=== PATIENT | female | born 1985 | race Caucasian/White ===

== ENCOUNTER 2017-10-05 22:33 | Observation (INO) ==
[2017-10-06] MEDS ORDERED: Naloxone 0.4 MG/ML INJ IVP PRN (01:36)
[2017-10-06] MEDS ORDERED: *HR* Promethazine 25 MG/ML VIAL IVP PRN (01:36)
[2017-10-06] MEDS ORDERED: Acetaminophen 325 MG TABLET PO PRN (01:36)
[2017-10-06] MEDS ORDERED: *HR* Dextrose 50 % in Water (Syg) 50 ML SYRINGE IVP PRN (01:44)
[2017-10-06] MEDS ORDERED: Dextrose Gel 15 GM/37.5 ML TUBE PO PRN ×2 (01:44)
[2017-10-06] MEDS ORDERED: D5% in Water 1,000 ML IVC PRN (01:44)
--- NOTE | 2017-10-06 03:01 | Internal Med History&Physical ---
Date of Encounter: 10/06/17 Time of Encounter: 01:30 Assessment and Plan (1) Abdominal pain Current visit: Yes Status: Acute 1. I suspect gastroparesis based upon history and exam. 2. Will order gastric emptying scan and consult GI for assistance in work-up and management. 3. Hydrate with IVF. 4. Pain control and nausea control as needed. Qualifiers: Abdominal location: generalized Qualified Code(s): R10.84 - Generalized abdominal pain (2) Vomiting and diarrhea Current visit: Yes Status: Chronic 1. Suspect due to gastroparesis. 2. Patient had been on antibiotics until recently (Macrodantin for UTI). 2. Will check stool for Clostridium Difficile. (3) Insulin dependent diabetes mellitus Current visit: Yes Status: Chronic 1. Will place on SSI. 2. Add basal insulin once glucose and labs rechecked this morning. 3. Adjust dosing per glucose readings. (4) Atrial fibrillation Current visit: Yes Status: Chronic 1. Patient reports a history of atrial fibrillation. 2. On exam, I do not appreciate an irregular rhythm. 3. Will order EKG and place on telemetry. Qualifiers: Atrial fibrillation type: paroxysmal Qualified Code(s): I48.0 - Paroxysmal atrial fibrillation (5) DVT prophylaxis Current visit: Yes Status: Acute 1. Heparin SQ. Internal Medicine - H&P: HPI Chief complaint: abdominal pain, vomiting, diarrhea Admitted From: Hospital to Hospital Transfer Plans for Post Hospital Care: Home History of present illness: Ms. Kemp is a 32 year old female who has had abdominal pain for 1 month associated with protracted nausea, vomiting, and occasional diarrhea. She was hospitalized at [facility] in [place] and [facility] in [place] for suspected viral gastroenteritis and dehydration. Despite IV fluid hydration and symptomatic care, patient has continued to lose weight unintentionally -- roughly 20 pounds last month. She denies any fevers, chills, hematochezia, or melena. She is diabetic and has been on insulin for roughly 25 years. She has never been diagnosed with gastroparesis before and has never had gastric empty scan. At [facility], she was told she has gastroparesis but she did not undergo any diagnostic study. Tonight, she presented to the ER at [facility]. Workup was negative, but she was quite symptomatic and dehydrated. [facility] had no beds available and neither did the surrounding hospitals. Patient was transferred here to our hospital for ongoing care and workup. Past Med Surg Social Fam HX - Past Medical History Attestation: Yes The following information was validated with the patient. Source: patient, other (transfer records from [facility]) Medical history: arthritis, atrial fibrillation, diabetes, fibromyalgia, GERD, hyperlipidemia, kidney stones, migraine, RA, seizures, valvular heart disease Psychiatric history: anxiety, depression, panic disorder - Past Surgical History Surgical History: , cholecystectomy - Social History Smoking Status: Never smoker Smokeless Tobacco Status: No Alcohol use: none Drug use: none Current living situation: Home, With Family Activity Level: Independent ambulation Recent Out of Country Travel Within the Last 8 Weeks: No - Family History Mother Living Status: Still Living Father Living Status: Age at : 56 Cause of : ruptured intestine Internal Medicine - H&P: Meds 3 Allergy/AdvReac Type Severity Reaction Status Date / Time Iodinated Contrast- Oral and Allergy Severe Anaphylaxis Verified 10/06/17 02:49 IV Dye metoclopramide [From Reglan] Allergy Severe Depression Verified 10/06/17 02:49 morphine Allergy Severe Hallucinati Verified 10/06/17 02:49 ng naproxen Allergy Severe Chest Pain Verified 10/06/17 02:49 nitroglycerin Allergy Severe Anaphylaxis Verified 10/06/17 02:49 acetaminophen Allergy Intermediate Vomiting Verified 10/06/17 02:49 [From Darvocet-N 100] adhesive tape Allergy Intermediate Rash Verified 10/06/17 02:49 Cefaclor [From Ceclor] Allergy Intermediate Hives Verified 10/06/17 02:49 cephalexin [From Keflex] Allergy Intermediate Hives Verified 10/06/17 02:49 clarithromycin [From Biaxin] Allergy Intermediate Hives Verified 10/06/17 02:49 codeine Allergy Intermediate Rash Verified 10/06/17 02:49 [From Tylenol-Codeine #3] latex Allergy Intermediate Blister Verified 10/06/17 02:49 levofloxacin [From Levaquin] Allergy Intermediate Hives Verified 10/06/17 02:49 meloxicam [From Mobic] Allergy Intermediate Chest Pain Verified 10/06/17 02:49 Oxaprozin [From Daypro] Allergy Intermediate Chest Pain Verified 10/06/17 02:49 propoxyphene Allergy Intermediate Vomiting Verified 10/06/17 02:49 [From Darvocet-N 100] spironolactone Allergy Intermediate Chest Pain Verified 10/06/17 02:49 [From Aldactone] ciprofloxacin [From Cipro] Allergy Unknown Diarrhea Verified 10/06/17 02:49 - Constitutional Constitutional: fatigue, weakness, weight loss, no chills, no fever(s), no night sweats - EENT Eyes: no blurry vision, no change in vision Ears: no ear pain, no tinnitus Nose, mouth and throat: no nasal congestion, no sinus pressure, no sore throat - Cardiovascular Cardiovascular ROS IM: no chest pain, no dyspnea, no dyspnea on exertion - Respiratory Respiratory: no cough, no chest congestion, no excessive phlegm production, no change in phlegm color - Gastrointestinal Gastrointestinal: abdominal pain, diarrhea, nausea, vomiting, no hematemesis, no hematochezia, no melena - Genitourinary Genitourinary: no dysuria, no flank pain, no hematuria Menstruation: amenorrhea (has IUD) - Musculoskeletal Musculoskeletal ROS IM: muscle cramps, muscle weakness, no arthralgias, no back pain - Integumentary Integumentary IM: no rash, no jaundice - Neurological Neurological ROS: no dizziness, no focal weakness, no frequent falls - Psychiatric Psychiatric: anxiety, no depression - Endocrine Endocrine IM: no polydipsia, no polyuria - Hematologic/Lymphatic Hematologic/Lymphatic: no easy bruising, no lymphadenopathy - Allergic/Immunologic Allergic/Immunologic: GI upset with certain foods, no wheezing - Constitutional Vitals: Temp Pulse Resp BP Pulse Ox 97.9 F 94 16 120/85 97 10/06/17 01:02 10/06/17 01:02 10/06/17 01:02 10/06/17 01:02 10/06/17 01:02 General appearance: Present: cooperative, mild distress, A&O X 3, pleasant, answers questions appropriately - Head Head exam: Present: normal inspection - Eye Eye exam: Present: EOMI, PERRL. Absent: scleral icterus Pupils: Present: normal accommodation - ENT ENT exam: Present: mucous membranes dry, normal exam - Neck Neck exam general surgery: Present: full ROM, supple. Absent: tenderness, nuchal rigidity - Respiratory Respiratory exam: Present: CTAB. Absent: chest wall tenderness, rales, respiratory distress, rhonchi, wheezes - Cardiovascular Cardiovascular exam: Present: RRR, +S1, +S2. Absent: diastolic murmur, systolic murmur Additional comments: I do not appreciate an irregularly irregular rhythm on auscultation - GI/Abdominal GI/Abdominal exam: Present: hypoactive bowel sounds, soft, tenderness. Absent: guarding, hepatomegaly, mass, rebound, splenomegaly - Extremities Exam Extremities exam: Present: full ROM, radial pulses palpable and symmetrical. Absent: calf tenderness, pedal edema, warm - Back Exam Back exam: Absent: CVA tenderness (L), CVA tenderness (R) - Neurological Exam Neurological exam: Present: alert, CN II-XII intact, oriented X3, strengths equal and symetr throughout - Psychiatric Psychiatric exam: Present: normal affect, normal mood - Skin Skin exam: Present: dry, warm. Absent: rash Internal Med - H&P Results - Labs Labs: I reviewed her labs from [facility] and include the following: WBC 6.9 Hemoglobin 15.8 Hematocrit 47.3 Platelet Count 302 Sodium 136 Potassium 4.1 Chloride 101 Carbon Dioxide 20 BUN 10 Creatinine 0.[address] scan abdomen and pelvis reveals no acute process except for a 3.4 cm ovarian cyst.
[2017-10-06] MEDS: *HR* HYDROcodone/Acet 5/325 mg TABLET PO PRN ×3 (03:05→23:20)
[2017-10-06] MEDS: 0.9 % Sodium Chloride w KCl 20 MEQ/1,000 ML MLS IVC SCH ×2 (03:06→12:11)
[2017-10-06 03:32] LABS: Basophils # 0.1 K/mcL (0.0-0.2); Basophils % 0.8 %; Eosinophils # 0.1 K/mcL (0.0-0.6); Eosinophils % 2.3 %; Hematocrit 41.8 % (35.3-44.9); Hemoglobin 14.2 g/dL (11.5-15.4); Immature Granulocytes % 0.2 % (0-4); Immature Platelets 4.7 % (1.1-6.1); Lymphocytes # 3.6 K/mcL (0.6-4.6); Lymphocytes % 57.4 %; Mean Corpuscular Hemoglobin 30.7 pg (28.0-33.3); Mean Corpuscular Volume 90.5 fL (83.0-100.0); Mean Platelet Volume 10.3 fL (9.4-12.4); Monocytes # 0.4 K/mcL (0.0-1.3); Monocytes % 6.6 %; Platelet Count 278 K/mcL (140-400); Red Blood Count 4.62 M/mcL (3.82-4.97); Segmented Neutrophils % 32.7 %
[2017-10-06 03:40] LABS: Prothrombin Time 10.7 Seconds (9.4-12.1)
[2017-10-06 03:43] LABS: Activated Partial Thrombo Time 24.3 Seconds (26.0-36.0)
[2017-10-06 04:12] LABS: Alanine Aminotransferase 10 Units/L (7-52); Albumin 3.7 g/dL (3.5-5.7); Albumin/Globulin Ratio 1.4 (1.1-2.2); Alkaline Phosphatase 71 Units/L (34-104); Aspartate Amino Transferase 14 Units/L (13-39); BUN/Creatinine Ratio 15 (6-26); Bilirubin,Total 0.7 mg/dL (0.3-1.0); Blood Urea Nitrogen 9 mg/dL (6-20); Calcium 8.8 mg/dL (8.6-10.3); Carbon Dioxide 23 mEq/L (23-29); Chloride 106 mEq/L (98-107); Globulin 2.6 g/dL (2.4-3.5); Glucose 136 mg/dL (70-105); Magnesium 1.7 mg/dL (1.6-2.6); Osmolality,Calculated 291 (280-300); Potassium 3.2 mEq/L (3.5-5.1); Sodium 140 mEq/L (136-145); Total Protein 6.3 g/dL (6.4-8.9); eGFR For African Americans > 60 (> 60); eGFR For Non-African Americans > 60 (> 60)
[2017-10-06] MEDS: *HR* Heparin 5,000 UNIT/ML VIAL SQ SCH ×2 (05:19→18:33)
[2017-10-06] MEDS: Insulin LISPRO 300 UNITS/3 ML VIAL SQ SCH ×3 (08:58→18:33)
[2017-10-06] MEDS: Ondansetron 4 MG/2 ML VIAL IVP PRN ×3 (09:52→23:19)
--- NOTE | 2017-10-06 11:07 | Gastroenterology Consult Note ---
<DiorDerrick rivera - Last Filed: 10/06/17 11:05> Date of Encounter: 10/06/17 Time of Encounter: 10:00 - Assessment and plan (1) Nausea & vomiting Status: Acute Assessment and plan: Likely secondary to gastroparesis. Pt is allergic to Reglan. Plan for EGD today , keep patient NPO. Follow up in GI office 2 weeks after discharge. Recommend: Small frequent meals Avoid fried and fatty foods Chew food well Blenderize food when symptomatic Reduce or avoid high-fiber foods and medications Avoid raw vegetables If you have diabetes, keep blood sugars well controlled Avoid medications that can delay gastric emptying such as narcotics, high-fiber medications, and high-fiber foods. Qualifiers: Vomiting type: unspecified Vomiting Intractability: non-intractable Qualified Code(s): R11.2 - Nausea with vomiting, unspecified (2) Abdominal pain Status: Acute Assessment and plan: Plan for EGD today to r/o esophagitis, gastritis, duodenitis, PUD, MW tear, or AVM. Keep patient NPO. Qualifiers: Abdominal location: generalized Qualified Code(s): R10.84 - Generalized abdominal pain - Time Spent With Patient Total time spent is greater than 50% in coordination of care (as documented) at patient's floor/unit and/or counseling patient: GI History of Present Illness - Data of Consult Patient: new to practice Consult date: 10/06/17 Requesting Physician: Leesa Manzo MD - Consult Narrative Reason for consult: N/V/D, possible gastroparesis History of present illness: Ms. Kemp is a 32 year old female with PMHx of arthritis, Afib, DM, fibromyalgia , GERD, HLD, kidney stones, migraines, seizures, and valvular heart disease. She was hospitalized at [facility] in [place] and [facility] in [place] for suspected viral gastroenteritis and dehydration. Despite IV fluid hydration and symptomatic care, patient has continued to lose weight unintentionally -- roughly 20 pounds last month. She denies fever, chills, chest pain, hematemesis , melena, or hematochezia. She is diabetic and has been on insulin for about 25 years. She has never been diagnosed with gastroparesis before and has never had gastric empty scan. At [facility], she was told she has gastroparesis but she did not undergo any diagnostic study. Procedures: EGD 10/04/1999 Dr. Sherman: Chronic inflammation, gastric ulcer, gastritis. NSAIDs: None Anticoagulation: None Past Med Surg Social Fam HX - Past Medical History Medical history: arthritis, atrial fibrillation, diabetes, fibromyalgia, GERD, hyperlipidemia, kidney stones, migraine, RA, seizures, valvular heart disease Psychiatric history: anxiety, depression, panic disorder - Past Surgical History Surgical History: , cholecystectomy - Social History Smoking Status: Never smoker Smokeless Tobacco Status: No Alcohol use: none Drug use: none - Family History Mother Living Status: Still Living Father Living Status: Age at : 56 Cause of : ruptured intestine - Gastrointestinal Gastrointestinal: Present: as per HPI - EENT Eyes: as per HPI Ears: Present: as per HPI Nose, mouth and throat: Present: as per HPI - Cardiovascular Cardiovascular ROS: Present: as per HPI - Respiratory Respiratory IM: Present: as per HPI - Genitourinary Genitourinary: Absent: change in color, Urinary frequency - Neurological ROS Neurological GI: Present: as per HPI - Hematologic/Lymphatic Hematologic/Lymphatic pediatric: Present: as per HPI - Musculoskeletal Musculoskeletal ROS GI: Present: as per HPI - Integumentary Integumentary GI: Present: as per HPI - Psychiatric ROS Psychiatric GI: Present: as per HPI - Endocrine Endocrine IM: Present: as per HPI - Constitutional Vitals: Temp Pulse Resp BP Pulse Ox 97.9 F 82 16 116/65 99 10/06/17 07:05 10/06/17 07:05 10/06/17 07:05 10/06/17 07:05 10/06/17 07:05 General appearance: Present: cooperative, A&O X 3, no acute distress, answers questions appropriately - Head Head exam: Present: atraumatic, normocephalic - Eye Eye exam: Present: normal appearance, sclera anicteric - ENT ENT exam: Present: mucous membranes dry - Neck Neck exam general surgery: Present: normal inspection, trachea midline - Respiratory Respiratory exam: Present: CTAB. Absent: rales, rhonchi - Cardiovascular Cardiovascular exam: Present: RRR, +S1, +S2 - GI/Abdominal GI/Abdominal exam: Present: soft, tenderness (mild generalized), no peritoneal signs. Absent: distended, firm, guarding - Rectal Rectal exam: Present: deferred - Extremities Exam Extremities exam: Present: warm - Neurological Exam Neurological exam: Present: no focal deficits - Psychiatric Psychiatric exam: Present: normal affect, normal mood - Skin Skin exam: Present: dry, intact, normal color, warm Results - Labs CBC & Chem 7: 10/06/17 03:23 10/06/17 03:23 Labs: Last Result Calcium 8.8 mg/dL (8.6-10.3) 10/06/17 03:23 Entire Visit Hgb 14.2 g/dL (11.5-15.4) 10/06/17 03:23 Hct 41.8 % (35.3-44.9) 10/06/17 03:23 PT 10.7 Seconds (9.4-12.1) 10/06/17 03:23 Total Bilirubin 0.7 mg/dL (0.3-1.0) 10/06/17 03:23 AST 14 Units/L (13-39) 10/06/17 03:23 ALT 10 Units/L (7-52) 10/06/17 03:23 - ABG ABG results: PT/INR, D-dimer PT 10.7 Seconds (9.4-12.1) 10/06/17 03:23 Consult Discharge Plan - Plan Instructions: Diabetic gastroparesis (DC) Additional Instructions: Please f/u with Gi Dr. Thrasher in 1 -2 weeks Referrals: Mily Hightower [Primary Care Provider] - 10/12/17 8:40 am Víctor Thrasher MD [Partnered Physician] - (Office will call you with a date and time of appt. Thank you) Prescriptions: Promethazine [Phenergan] 25 mg PO Q6HR PRN #20 tablet PRN Reason: Nausea <Víctor Thrasher - Last Filed: 10/15/17 13:17> Date of Encounter: 10/06/17 - Time Spent With Patient Total time spent is greater than 50% in coordination of care (as documented) at patient's floor/unit and/or counseling patient: GI History of Present Illness - Data of Consult Requesting Physician: Leesa Manzo MD - Consult Narrative History of present illness: Ms. Kemp is a 32 year old female - Constitutional Vitals: Temp Pulse Resp BP Pulse Ox 98.0 F 101 18 111/79 99 01/25/18 10:34 10/08/17 10:34 10/08/17 10:34 10/08/17 10:34 10/08/17 10:34 Results - Labs CBC & Chem 7: 10/06/17 03:23 10/06/17 03:23 Labs: Last Result Calcium 8.8 mg/dL (8.6-10.3) 10/06/17 03:23 Entire Visit Hgb 14.2 g/dL (11.5-15.4) 10/06/17 03:23 Hct 41.8 % (35.3-44.9) 10/06/17 03:23 PT 10.7 Seconds (9.4-12.1) 10/06/17 03:23 Total Bilirubin 0.7 mg/dL (0.3-1.0) 10/06/17 03:23 AST 14 Units/L (13-39) 10/06/17 03:23 ALT 10 Units/L (7-52) 10/06/17 03:23 - ABG ABG results: PT/INR, D-dimer PT 10.7 Seconds (9.4-12.1) 10/06/17 03:23 - Attending Attestation Agree with gastroparesis as presumptive diagnosis. Plan EGD. Cancel gastric emptying study For this encounter, I have reviewed the BRAILLE PROOFREADER or PA documentation, treatment plan, and medical decision making; and I have had face to face time with this patient.
--- NOTE | 2017-10-06 13:10 | Anesthesia Evaluation PreOp ---
Date of Encounter: 10/06/17 Time of Encounter: 13:07 - Past History Planned Operation: Colonoscopy Cardiac History: Hyperlipidemia, Arrhythmia (hx AfibAFib), Other (Valvular Heart Dx) LICENSED PSYCHIATRIC TECHNICIAN History: Seizures, Other (Migraines) Other Medical History: Renal (Stones), Diabetes Type I, GERD, Other (RA, Fibromyalgia, gastroporesis) Anesthesia History: No Prior Anesthetic Complications, Past Anesthesia (c/s/GB) : No Test: Negative (10/06/2017) Alcohol Use: none Drug use: none Medications and Allergies ALPRAZolam [Xanax 0.5 MG Tablet] 0.5 mg PO BID 10/06/17 [History] Fluticasone Propionate Nasal [Flonase] 2 spr NS DAILY 10/06/17 [History] HYDROcodone/Acet 7.5/325 mg [[place] 7.5-325 mg] 1 tab PO TID 10/06/17 [History] Insulin ASPART [NovoLOG] 10 unit SQ TID 10/06/17 [History] Insulin Glargine [Lantus] 30 unit SQ HS 10/06/17 [History] Loratadine [Claritin] 10 mg PO DAILY 10/06/17 [History] Ondansetron [Zofran] 1 tab PO Q8H PRN 10/06/17 [History] Promethazine [Phenergan] 25 mg PO Q6HR PRN 10/06/17 [History] 3 Allergy/AdvReac Type Severity Reaction Status Date / Time Iodinated Contrast- Oral and Allergy Severe Anaphylaxis Verified 10/06/17 02:49 IV Dye metoclopramide [From Reglan] Allergy Severe Depression Verified 10/06/17 02:49 morphine Allergy Severe Hallucinati Verified 10/06/17 02:49 ng naproxen Allergy Severe Chest Pain Verified 10/06/17 02:49 nitroglycerin Allergy Severe Anaphylaxis Verified 10/06/17 02:49 acetaminophen Allergy Intermediate Vomiting Verified 10/06/17 02:49 [From Darvocet-N 100] adhesive tape Allergy Intermediate Rash Verified 10/06/17 02:49 Cefaclor [From Ceclor] Allergy Intermediate Hives Verified 10/06/17 02:49 cephalexin [From Keflex] Allergy Intermediate Hives Verified 10/06/17 02:49 clarithromycin [From Biaxin] Allergy Intermediate Hives Verified 10/06/17 02:49 codeine Allergy Intermediate Rash Verified 10/06/17 02:49 [From Tylenol-Codeine #3] latex Allergy Intermediate Blister Verified 10/06/17 02:49 levofloxacin [From Levaquin] Allergy Intermediate Hives Verified 10/06/17 02:49 meloxicam [From Mobic] Allergy Intermediate Chest Pain Verified 10/06/17 02:49 Oxaprozin [From Daypro] Allergy Intermediate Chest Pain Verified 10/06/17 02:49 propoxyphene Allergy Intermediate Vomiting Verified 10/06/17 02:49 [From Darvocet-N 100] spironolactone Allergy Intermediate Chest Pain Verified 10/06/17 02:49 [From Aldactone] ciprofloxacin [From Cipro] Allergy Unknown Diarrhea Verified 10/06/17 02:49 - Meds/Allergy Pre-op Review Medications Reviewed: Yes Allergies Reviewed: Yes Beta Blockers on Current Med List: No Anesthesia Results - Labs 10/06/17 03:23 10/06/17 03:23 Laboratory Tests 10/06/17 03:23 Serum , Qual Negative - Imaging EKG: image reviewed (NSR) Anesthesia Exam Vital Signs/O2 Sat, Most Current Temp Pulse Resp BP Pulse Ox 97.9 F 97 15 121/77 100 10/06/17 11:50 10/06/17 11:50 10/06/17 11:50 10/06/17 11:50 10/06/17 11:50 Pain Scale: 0 Pain Scale Used: Numeric (1 - 10) - HEENT Pupil (Motor): Pupils equal, EOMI Mallampati: I Teeth: Normal Oral Opening: Greater than 3 - LICENSED PSYCHIATRIC TECHNICIAN LOC: Oriented LICENSED PSYCHIATRIC TECHNICIAN Motor: Normal RUE, Normal LUE, Normal RLE, Normal LLE, Normal Face LICENSED PSYCHIATRIC TECHNICIAN Sensory: Normal: RUE, LUE, RLE, LLE, Face - Cardiac Rhythm: Regular Murmur: None JVD: No Carotid Bruit: No - Pulmonary Breath Sounds: bilateral Clear Respiratory Effort: Symmetrical Anesthesia Assess/Plan ASA Score: 3 Modified Worcester Scale for Level of Consciousness: Cooperative, oriented, and tranquil Anesthetic Plan: MAC Autologous Blood: Yes Monitoring Plan: Standard Monitors Recovery Plan: Other
[2017-10-06] MEDS ORDERED: *HR* Propofol 200 MG/20 ML VIAL IVP ONE ×2 (13:22→13:31)
--- NOTE | 2017-10-06 17:52 | Internal Med Progress Note ---
Date of Encounter: 10/06/17 Time of Encounter: 17:49 - Assessment and plan (1) Nausea & vomiting Current Visit: Yes Status: Acute Assessment and plan: Mostly due to gastroparesis due to DM s/p EGD showed gastropareiss spoke to Dr. Price martiested Reglan..but pt allergic to reglan will check with pharmacy about Erythromycin option ..will start her on that in AM cont Phenargan PO PRN for now IV hydration Qualifiers: Vomiting type: unspecified Vomiting Intractability: non-intractable Qualified Code(s): R11.2 - Nausea with vomiting, unspecified (2) Gastroparesis due to DM Current Visit: Yes Status: Acute Assessment and plan: cont supportive care (3) Abdominal pain Current Visit: Yes Status: Acute Qualifiers: Abdominal location: generalized Qualified Code(s): R10.84 - Generalized abdominal pain (4) Insulin dependent diabetes mellitus Current Visit: Yes Status: Chronic Assessment and plan: HbA1C 9.0 pt stated it was 13 before counseled to keep BS well controlled cont ISS + Levemir - Subjective Interval history: Ms. Kemp is a 32 year old female who has had abdominal pain for 1 month associated with protracted nausea, vomiting, and occasional diarrhea. She was hospitalized at [facility] in [place] and [facility] in [place] for suspected viral gastroenteritis and dehydration. Despite IV fluid hydration and symptomatic care, patient has continued to lose weight unintentionally -- roughly 20 pounds last month. She denies any fevers, chills, hematochezia, or melena. She is diabetic and has been on insulin for roughly 25 years. She presented to the ER at [facility] with similar symptoms, Workup was negative, but she was quite symptomatic and dehydrated. Pt was admitted here and started her on IV hydration and anti emetics. her symptoms little better now. Did go for EGD today. - Constitutional Vitals: Temp Pulse Resp BP Pulse Ox 97.6 F 91 18 106/78 100 10/06/17 14:00 10/06/17 14:00 10/06/17 14:00 10/06/17 14:00 10/06/17 14:00 General appearance: Present: cooperative, A&O X 3, pleasant, answers questions appropriately - Head Head exam: Present: atraumatic, normal inspection - Neck Neck exam general surgery: Present: supple - Respiratory Respiratory exam: Present: decreased breath sounds. Absent: rales, respiratory distress, rhonchi, wheezes - Cardiovascular Cardiovascular exam: Present: RRR, +S1, +S2. Absent: tachycardia - GI/Abdominal GI/Abdominal exam: Present: normal bowel sounds, soft. Absent: rebound, rigid, tenderness - Extremities Exam Extremities exam: Absent: calf tenderness, pedal edema, tenderness - Back Exam Back exam: Absent: CVA tenderness (L), CVA tenderness (R) - Neurological Exam Neurological exam: Present: alert, oriented X3 - Psychiatric Psychiatric exam: Present: normal affect, normal mood Internal Medicine: Result - Labs CBC & Chem 7: 10/06/17 03:23 10/06/17 03:23 Labs: Short CBC 10/06/17 Range/Units 03:23 WBC 6.2 (4.3-11.1) K/mcL Hgb 14.2 (11.5-15.4) g/dL Hct 41.8 (35.3-44.9) % Plt Count 278 (140-400) K/mcL Neutrophils # 2.0 (1.6-8.9) K/mcL BMP 10/06/17 03:23 Sodium 140 Potassium 3.2 L Chloride 106 Carbon Dioxide 23 BUN 9 Creatinine 0.59 L Glucose 136 H Calcium 8.8 Liver Function 10/06/17 Range/Units 03:23 Total Bilirubin 0.7 (0.3-1.0) mg/dL AST 14 (13-39) Units/L ALT 10 (7-52) Units/L Alkaline Phosphatase 71 (34-104) Units/L Albumin 3.7 (3.5-5.7) g/dL - ABG Interpretation ABG results: PT/INR, D-dimer PT 10.7 Seconds (9.4-12.1) 10/06/17 03:23 Consult Discharge Plan - Plan Referrals: Mily Hightower [Primary Care Provider] - Jodi Covington [Non-Partnered Physician] - Haleigh Diana MD [Family Provider] -
[2017-10-06] MEDS ORDERED: Insulin DETEMIR 100 UNIT/ML X5UNITS SQ SCH (22:45)
[2017-10-07] MEDS: *HR* Heparin 5,000 UNIT/ML VIAL SQ SCH ×2 (06:23→17:47)
[2017-10-07] MEDS: Insulin LISPRO 300 UNITS/3 ML VIAL SQ SCH ×5 (07:34→19:53)
--- NOTE | 2017-10-07 09:21 | Electrocardiograph Report ---
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
[2017-10-07] MEDS ORDERED: D5% in 0.45% NACL w KCl 20 MEQ/1,000 ML MLS IVC SCH (09:45)
[2017-10-07] MEDS ORDERED: Insulin DETEMIR 100 UNIT/ML X5UNITS SQ SCH (09:46)
[2017-10-07] MEDS: *HR* HYDROcodone/Acet 5/325 mg TABLET PO PRN (12:42)
[2017-10-07] MEDS: Ondansetron 4 MG/2 ML VIAL IVP PRN ×2 (12:42→20:00)
--- NOTE | 2017-10-07 17:26 | Internal Med Progress Note ---
Date of Encounter: 10/07/17 Time of Encounter: 10:30 - Assessment and plan (1) Nausea & vomiting Current Visit: Yes Status: Acute Assessment and plan: Mostly due to gastroparesis due to DM s/p EGD showed gastropareiss spoke to Dr. Thrasher suggested Reglan..but pt allergic to reglan..she gets suicidal thoughts with Reglan She is allergic to Biaxin so can not give her Erythromycin cont Phenargan / Zofran PO PRN for now Educated about gastroparesis diet Qualifiers: Vomiting type: unspecified Vomiting Intractability: non-intractable Qualified Code(s): R11.2 - Nausea with vomiting, unspecified (2) Gastroparesis due to DM Current Visit: Yes Status: Acute Assessment and plan: cont supportive care (3) Abdominal pain Current Visit: Yes Status: Acute Qualifiers: Abdominal location: generalized Qualified Code(s): R10.84 - Generalized abdominal pain (4) Insulin dependent diabetes mellitus Current Visit: Yes Status: Chronic Assessment and plan: HbA1C 9.0 pt stated it was 13 before counseled to keep BS well controlled Her BS were running low today due to poor PO intake so started her on D5NS with K+ x 1 bag cont ISS Cut back on Levemir HS dose - Subjective Interval history: Ms. Kemp is a 32 year old female who has had abdominal pain for 1 month associated with protracted nausea, vomiting, and occasional diarrhea. She was hospitalized at [facility] in [place] and [place] in [place] for suspected viral gastroenteritis and dehydration. Despite IV fluid hydration and symptomatic care, patient has continued to lose weight unintentionally -- roughly 20 pounds last month. She denies any fevers, chills, hematochezia, or melena. She is diabetic and has been on insulin for roughly 25 years. She presented to the ER at [facility] with similar symptoms, Workup was negative, but she was quite symptomatic and dehydrated. Pt was admitted here and started her on IV hydration and anti emetics. her symptoms little better now. Had EGD on 10/06/17 Pt still c/o N/V.. her PO intake is still low. Her BS are running little low too. - Constitutional Vitals: Temp Pulse Resp BP Pulse Ox 98.1 F 97 18 114/80 97 10/07/17 15:48 10/07/17 15:48 10/07/17 15:48 10/07/17 15:48 10/07/17 15:48 General appearance: Present: cooperative, A&O X 3, pleasant, answers questions appropriately - Head Head exam: Present: atraumatic, normal inspection - Neck Neck exam general surgery: Present: supple - Respiratory Respiratory exam: Present: decreased breath sounds. Absent: rales, respiratory distress, rhonchi, wheezes - Cardiovascular Cardiovascular exam: Present: RRR, +S1, +S2. Absent: tachycardia - GI/Abdominal GI/Abdominal exam: Present: normal bowel sounds, soft. Absent: rebound, rigid, tenderness - Extremities Exam Extremities exam: Absent: calf tenderness, pedal edema, tenderness - Back Exam Back exam: Absent: CVA tenderness (L), CVA tenderness (R) - Neurological Exam Neurological exam: Present: alert, oriented X3 Internal Medicine: Result - Labs CBC & Chem 7: 10/06/17 03:23 10/06/17 03:23 - ABG Interpretation ABG results: PT/INR, D-dimer PT 10.7 Seconds (9.4-12.1) 10/06/17 03:23 Consult Discharge Plan - Plan Referrals: Mily Hightower [Primary Care Provider] - Jodi Covington [Non-Partnered Physician] - Haleigh Diana MD [Family Provider] -
[2017-10-08] MEDS: Ondansetron 4 MG/2 ML VIAL IVP PRN ×2 (04:30→10:53)
[2017-10-08] MEDS: *HR* Heparin 5,000 UNIT/ML VIAL SQ SCH (05:19)
[2017-10-08] MEDS: Insulin LISPRO 300 UNITS/3 ML VIAL SQ SCH ×2 (07:38→11:37)
[2017-10-08 10:38] VITALS: BP 111/79
[2017-10-08] MEDS: *HR* HYDROcodone/Acet 5/325 mg TABLET PO PRN (10:53)
--- NOTE | 2017-10-08 12:11 | Discharge Summary ---
Date of Encounter: 10/08/17 Time of Encounter: 12:08 - Discharge Diagnosis (1) Nausea & vomiting Priority: Primary Status: Acute Qualifiers: Vomiting type: unspecified Vomiting Intractability: non-intractable Qualified Code(s): R11.2 - Nausea with vomiting, unspecified (2) Gastroparesis due to DM Priority: Primary Status: Acute (3) Abdominal pain Priority: Secondary Status: Acute Qualifiers: Abdominal location: generalized Qualified Code(s): R10.84 - Generalized abdominal pain (4) Insulin dependent diabetes mellitus Priority: Secondary Status: Chronic - Discharge Medications Prescriptions: Promethazine [Phenergan] 25 mg PO Q6HR PRN #20 tablet PRN Reason: Nausea Home Medications: ALPRAZolam [Xanax 0.5 MG Tablet] 0.5 mg PO BID 10/06/17 [History] Fluticasone Propionate Nasal [Flonase] 2 spr NS DAILY 10/06/17 [History] HYDROcodone/Acet 7.5/325 mg [[place] 7.5-325 mg] 1 tab PO TID 10/06/17 [History] Insulin ASPART [NovoLOG] 10 unit SQ TID 10/06/17 [History] Loratadine [Claritin] 10 mg PO DAILY 10/06/17 [History] Ondansetron [Zofran] 1 tab PO Q8H PRN 10/06/17 [History] Insulin Glargine [Lantus] 15 unit SQ HS #0 10/08/17 [Rx] Promethazine [Phenergan] 25 mg PO Q6HR PRN #20 tablet 10/08/17 [Rx] Allergies/Adverse Reactions: 3 Allergy/AdvReac Type Severity Reaction Status Date / Time Iodinated Contrast- Oral and Allergy Severe Anaphylaxis Verified 10/06/17 02:49 IV Dye metoclopramide [From Reglan] Allergy Severe Depression Verified 10/06/17 02:49 morphine Allergy Severe Hallucinati Verified 10/06/17 02:49 ng naproxen Allergy Severe Chest Pain Verified 10/06/17 02:49 nitroglycerin Allergy Severe Anaphylaxis Verified 10/06/17 02:49 acetaminophen Allergy Intermediate Vomiting Verified 10/06/17 02:49 [From Darvocet-N 100] adhesive tape Allergy Intermediate Rash Verified 10/06/17 02:49 Cefaclor [From Ceclor] Allergy Intermediate Hives Verified 10/06/17 02:49 cephalexin [From Keflex] Allergy Intermediate Hives Verified 10/06/17 02:49 clarithromycin [From Biaxin] Allergy Intermediate Hives Verified 10/06/17 02:49 codeine Allergy Intermediate Rash Verified 10/06/17 02:49 [From Tylenol-Codeine #3] latex Allergy Intermediate Blister Verified 10/06/17 02:49 levofloxacin [From Levaquin] Allergy Intermediate Hives Verified 10/06/17 02:49 meloxicam [From Mobic] Allergy Intermediate Chest Pain Verified 10/06/17 02:49 Oxaprozin [From Daypro] Allergy Intermediate Chest Pain Verified 10/06/17 02:49 propoxyphene Allergy Intermediate Vomiting Verified 10/06/17 02:49 [From Darvocet-N 100] spironolactone Allergy Intermediate Chest Pain Verified 10/06/17 02:49 [From Aldactone] ciprofloxacin [From Cipro] Allergy Unknown Diarrhea Verified 10/06/17 02:49 Procedures/tests Complete & Pending: Procedures Performed prior 72 hours Category Date Time Status ECG 12 lead ECG [ECG] Routine Y 10/06/17 01:36 Completed Date of admission: 10/06/17 00:20 Primary care physician: Mily Hightower Consults: 10/06/17 01:41 Consult to Physician [CONS] Routine Consulting Provider: Leroy Price Reason for Consult: protracted N/V/D; diabetic with possible gastroparesis Call Completed: No - Patient Status Disposition: Home, Self-Care Condition: Good Overall status at discharge: patient is back to baseline - Discharge Instructions Instructions: Diabetic gastroparesis (DC) Follow Up With: Mily Hightower [Primary Care Provider] - Jodi Covington [Non-Partnered Physician] - Haleigh Diana MD [Family Provider] - Víctor Thrasher MD [Partnered Physician] - Additional Instructions: Please f/u with Gi Dr. Thrasher in 1 -2 weeks - Diet and Activity Activity: increase activity as tolerated Diet: diabetic diet Hospital course: Ms. Kemp is a 32 year old female who has had abdominal pain for 1 month associated with protracted nausea, vomiting, and occasional diarrhea. She was hospitalized at [facility] and [place] in [place] for suspected viral gastroenteritis and dehydration. Despite IV fluid hydration and symptomatic care, patient has continued to lose weight unintentionally -- roughly 20 pounds last month. She denies any fevers, chills, hematochezia, or melena. She is diabetic and has been on insulin for roughly 25 years. She presented to the ER at [facility] with similar symptoms, Workup was negative, but she was quite symptomatic and dehydrated. Pt was admitted here and started her on IV hydration and anti emetics. her symptoms little better now. Had EGD on 10/06/17, which showed severe gastroparesis. But pt is allergic to reglan, pt gets suicidal thoughts with Reglan. She is allergic to Biaxin so can not give her Erythromycin. So we cont Phenargan / Zofran PO PRN. Her symptoms little better now. Also educated her about gastroparesis diet. - Time Spent with Patient Total time spent providing and/or coordinating discharge services: - Constitutional Vitals: Temp Pulse Resp BP Pulse Ox 98.0 F 101 18 111/79 99 10/08/17 10:34 10/08/17 10:34 10/08/17 10:34 10/08/17 10:34 10/08/17 10:34 General appearance: Present: cooperative, A&O X 3, pleasant, answers questions appropriately - Head Head exam: Present: atraumatic, normal inspection - Neck Neck exam general surgery: Present: supple - Respiratory Respiratory exam: Present: CTAB. Absent: respiratory distress, rhonchi, wheezes - Cardiovascular Cardiovascular exam: Present: RRR, +S1, +S2. Absent: diastolic murmur, gallop, rubs, systolic murmur - GI/Abdominal GI/Abdominal exam: Present: soft. Absent: rebound, rigid, tenderness - Extremities Exam Extremities exam: Absent: calf tenderness, pedal edema, tenderness
== END 2017-10-08 15:15 | disposition home or self-care (01) ==
LOC: 3ANU → SUATTDRO 10-06 00:20 → 3ANU 10-07 05:09
PROVIDERS: ADMIT Pediatrics; ATTEND Family Medicine
PROC: ENDOEBX (2017-10-06 15:00)

== ENCOUNTER 2018-06-05 07:01 | Inpatient (IN) ==
[2018-06-05] MEDS ORDERED: Ondansetron 4 MG/2 ML VIAL IVP ONE (07:24)
[2018-06-05] MEDS ORDERED: 0.9 % Sodium Chloride 1,000 ML IVC ONE ×2 (07:24→08:14)
--- NOTE | 2018-06-05 07:25 | Emergency Department Note ---
Disposition Clinical Impression: Abdominal pain Qualifiers: Abdominal location: generalized Qualified Code(s): R10.84 - Generalized abdominal pain Nausea and vomiting Qualifiers: Vomiting type: unspecified Vomiting Intractability: non-intractable Qualified Code(s): R11.2 - Nausea with vomiting, unspecified DKA (diabetic ketoacidoses) Qualifiers: Diabetes mellitus type: type 1 Diabetes mellitus complication detail: without coma Qualified Code(s): E10.10 - Type 1 diabetes mellitus with ketoacidosis without coma Disposition: Admitted As Inpatient Condition: Fair Referrals: Mily Hightower [Primary Care Provider] - Haleigh Diana MD [Family Provider] - Forms: ED Satisfaction Letter, Work/School Release Time of Disposition: 09:09 Abdominal Pain HPI - General Chief Complaint: ED Abdominal Pain Stated Complaint: ABD Pain N/V Time Seen by Provider: 06/05/18 07:10 Nursing Notes Reviewed: Yes Vital Signs Reviewed: Yes - History of Present Illness HPI Narrative: 32yo female presents from home with mother bedside for evaluation of nausea, vomiting, abdominal pain. Patient is type I diabetic for the last 27 years, poorly controlled since early adulthood. Diagnose gastroparesis August 2012. She is seeing multiple physicians; mom notes her most recent surgeon at [facility], Dr. Mcleod, is her 14th physician for this problem. Dr. Mcleod place a J- tube in February to help the patient feed. This replaced 2 weeks ago because there was some blood around the os. The last 2 weeks, patient has been unable to tolerate feeding through this replacement J-tube was removed yesterday by Dr. Mcleod. Patient was told there was nothing more he could do for her. She presents today over concerns of dehydration and persistent nausea. She has vomited her home prescription of Zofran. She has had several lows; she was in the mid 20s several days ago but was able tolerate honey to correct. She has previously seen Dr. Price and requests follow-up to him. She does have a referral from Dr. Mcleod to the [facility] and is awaiting scheduling. ROS: Positive: As above. Weakness, generalized abdominal pain Negative: Fever, chills, chest pains, palpitations, unusual back pain Pain Scale: 8 - Related Data Home Medications Medication Instructions Recorded Confirmed ALPRAZolam [Xanax 0.5 MG Tablet] 0.5 mg PO BID PRN 10/06/17 06/05/18 HYDROcodone/Acet 7.5/325 mg [[place] 1 tab PO TID PRN 10/06/17 06/05/18 7.5-325 mg] Insulin ASPART [NovoLOG] 10 unit SQ TID 10/06/17 06/05/18 Ondansetron [Zofran] 1 tab PO Q8H PRN 10/06/17 06/05/18 Dicyclomine [Bentyl] 10 mg PO QID 10/30/17 06/05/18 Insulin Glargine [Lantus] 25 unit SQ HS 10/30/17 06/05/18 Previous Rx's Medication Instructions Recorded Promethazine [Phenergan] 25 mg PO Q6HR PRN #20 tablet 10/08/17 Allergies Allergy/AdvReac Type Severity Reaction Status Date / Time Iodinated Contrast- Oral and Allergy Severe Anaphylaxis Verified 06/05/18 07:49 IV Dye nitroglycerin Allergy Severe Anaphylaxis Verified 06/05/18 07:49 adhesive tape Allergy Intermediate Rash Verified 06/05/18 07:49 Cefaclor [From Ceclor] Allergy Intermediate Hives Verified 06/05/18 07:49 cephalexin [From Keflex] Allergy Intermediate Hives Verified 06/05/18 07:49 clarithromycin [From Biaxin] Allergy Intermediate Hives Verified 06/05/18 07:49 codeine Allergy Intermediate Rash Verified 06/05/18 07:49 [From Tylenol-Codeine #3] latex Allergy Intermediate Blister Verified 06/05/18 07:49 levofloxacin [From Levaquin] Allergy Intermediate Hives Verified 06/05/18 07:49 metoclopramide [From Reglan] AdvReac Severe Depression Verified 06/05/18 07:49 morphine AdvReac Severe Hallucinati Verified 06/05/18 07:49 ng naproxen AdvReac Severe Chest Pain Verified 06/05/18 07:49 acetaminophen AdvReac Intermediate Vomiting Verified 06/05/18 07:49 [From Darvocet-N 100] meloxicam [From Mobic] AdvReac Intermediate Chest Pain Verified 06/05/18 07:49 Oxaprozin [From Daypro] AdvReac Intermediate Chest Pain Verified 06/05/18 07:49 propoxyphene AdvReac Intermediate Vomiting Verified 06/05/18 07:49 [From Darvocet-N 100] spironolactone AdvReac Intermediate Chest Pain Verified 06/05/18 07:49 [From Aldactone] promethazine AdvReac Mild Muscle Pain Verified 06/05/18 07:49 ciprofloxacin [From Cipro] AdvReac Unknown Diarrhea Verified 06/05/18 07:49 ketorolac [From Toradol] AdvReac See Verified 06/05/18 07:49 Comments All systems ED: reviewed and negative except as stated. Review of Systems: As Per HPI Abdominal Pain PMH - Past Medical History Medical history: Reports: arthritis, atrial fibrillation, diabetes, fibromyalgia , GERD, hyperlipidemia, kidney stones, migraine, RA, seizures, valvular heart disease Psychiatric history: Reports: anxiety, depression, panic disorder - Social History Smoking status: Never smoker Alcohol use: Reports: none Drug use: Reports: none Physical Exam Vital Signs Reviewed General: Patient is alert, oriented, and in mild distress-she is dry heaving occasionally at bedside. She appears pale. Head: atraumatic, normocephalic Eye: normal appearance, no scleral icterus, no conjunctival injection ENT: mucous membranes tacky, lips are not dry or crackes. normal external ear exam Neck: normal inspection, trachea midline, full ROM Chest: normal inspection, symmetric chest rise Respiratory: Good respiratory effort. Bilateral breath sounds are clear without wheezing, crackles, or rhonchi. Cardiovascular: Regular rate and rhythm. No clicks, rubs, gallops, or murmors. Normal heart sounds. Abdomen: Bowel sounds present normoactive x-4 quadrants. Abdomen is soft, nondistended. Mild diffuse tenderness and is nonfocal. No guarding or rebound. Musculoskeletal: Spontaneously moving all extremities. Skin: warm, dry, intact. Neuro: Alert and oriented x4. Sensation light touch intact. Psych: Patient's affect is appropriate for situation. Course Course Narrative: Discussed with the patient and her mother their goals for today. Their goals are IV fluids and IV nausea control. They are agreeable to basic labs given patient's poor PO intake and hx of DM 1. They request follow-up with Dr. Price whom they have seen previously. Laboratory workup shows patient is in DKA. She has received 2 L of IV fluids 7 : The first thing are brought her blood glucose from 6 2525. Potassium is 4.9. We will begin insulin drip. Patient's nausea has improved. However, mom notes she seems slightly confused this time. Suspect this is greatly due to her DKA and acidosis of pH 7.17. Vital Signs Temperature 98.1 F 06/05/18 07:04 Pulse Rate 119 06/05/18 07:04 Respiratory Rate 18 06/05/18 07:04 Blood Pressure 149/91 06/05/18 07:04 O2 Sat by Pulse Oximetry 100 06/05/18 07:04 Temperature 98.1 F 06/05/18 07:55 Pulse Rate 132 06/05/18 09:02 Respiratory Rate 30 06/05/18 09:02 Blood Pressure 136/90 06/05/18 09:02 O2 Sat by Pulse Oximetry 100 06/05/18 09:02 Oxygen Delivery Oxygen Delivery Room Air Abdominal Pain - Lab Data Result diagrams: 06/05/18 07:28 06/05/18 07:28 Lab Results 06/05/18 06/05/18 06/05/18 Range/Units 07:21 07:21 07:28 WBC 10.0 (4.3-11.1) K/mcL RBC 4.08 (3.82-4.97) M/mcL Hgb 13.2 (11.5-15.4) g/dL Hct 40.2 (35.3-44.9) % MCV 98.5 (83.0-100.0) fL MCH 32.4 (28.0-33.3) pg MCHC 32.8 (31.6-35.5) g/dL RDW 13.2 (11.5-14.5) % Plt Count 400 (140-400) K/mcL MPV 9.3 L (9.4-12.4) fL Immature Gran % 0.9 (0-4) % Seg Neutrophils % 70.5 % Lymphocytes % 22.0 % Monocytes % 5.8 % Eosinophils % 0.0 % Basophils % 0.8 % Neutrophils # 7.1 (1.6-8.9) K/mcL Lymphocytes # 2.2 (0.6-4.6) K/mcL Monocytes # 0.6 (0.0-1.3) K/mcL Eosinophils # 0.0 (0.0-0.6) K/mcL Basophils # 0.1 (0.0-0.2) K/mcL VBG pH (7.32-7.42) pH Units VBG pCO2 (41-51) mmHg VBG pO2 (25-50) mmHg VBG HCO3 (21-27) mEq/L Sodium (136-145) mEq/L Potassium (3.5-5.1) mEq/L Chloride (98-107) mEq/L Carbon Dioxide (23-29) mEq/L BUN (6-20) mg/dL Creatinine (0.60-1.20) mg/dL Est GFR ( Amer) (> 60) Est GFR (Non-Af Amer) (> 60) BUN/Creatinine Ratio (6-26) Glucose (70-105) mg/dL POC Glucose (70-99) mg/dL Calculated Osmolality (280-300) Calcium (8.6-10.3) mg/dL Beta-Hydroxybutyric Acd > 2.00 H (0.02-0.27) mmol/L Serum , Qual Negative (Negative) Person Notif of Crit 06/05/18 06/05/18 06/05/18 Range/Units 07:28 08:41 08:57 WBC (4.3-11.1) K/mcL RBC (3.82-4.97) M/mcL Hgb (11.5-15.4) g/dL Hct (35.3-44.9) % MCV (83.0-100.0) fL MCH (28.0-33.3) pg MCHC (31.6-35.5) g/dL RDW (11.5-14.5) % Plt Count (140-400) K/mcL MPV (9.4-12.4) fL Immature Gran % (0-4) % Seg Neutrophils % % Lymphocytes % % Monocytes % % Eosinophils % % Basophils % % Neutrophils # (1.6-8.9) K/mcL Lymphocytes # (0.6-4.6) K/mcL Monocytes # (0.0-1.3) K/mcL Eosinophils # (0.0-0.6) K/mcL Basophils # (0.0-0.2) K/mcL VBG pH 7.17 L* (7.32-7.42) pH Units VBG pCO2 18 L (41-51) mmHg VBG pO2 124 H (25-50) mmHg VBG HCO3 7 L (21-27) mEq/L Sodium 135 L (136-145) mEq/L Potassium 4.9 (3.5-5.1) mEq/L Chloride 101 (98-107) mEq/L Carbon Dioxide 6 L* (23-29) mEq/L BUN 17 (6-20) mg/dL Creatinine 0.96 (0.60-1.20) mg/dL Est GFR ( Amer) > 60 (> 60) Est GFR (Non-Af Amer) > 60 (> 60) BUN/Creatinine Ratio 18 (6-26) Glucose 601 H* (70-105) mg/dL POC Glucose 525 H* (70-99) mg/dL Calculated Osmolality 309 H (280-300) Calcium 9.2 (8.6-10.3) mg/dL Beta-Hydroxybutyric Acd (0.02-0.27) mmol/L Serum , Qual (Negative) Person Notif of Kaela Alberto Critical Care Time Critical Care Time: Yes Total Critical Care Time: 35 Attestation: Critical care time 35 minutes managing patient's DKA. Attestation Statement - Attestation Attestation: Patient was seen with resident physician. I reviewed the history, physical, assessment and plan, and agree with the findings. I also personally evaluated this patient and had [id number] time with this patient. 32-year-old female presents emergency Department chief complaint of nausea vomiting and abdominal pain. Patient has a history of gastroparesis secondary to uncontrolled diabetes type 1. She says for the last 72 hours she has not been able to take any oral liquids without feeling nauseated. She alternates Phenergan and Zofran but she says is not been helping. She also has a feeding tube secondary to the gastroparesis. She said she does not have rectal Phenergan because she said she gets diarrhea. No fevers or chills no chest pain or shortness of breath. Review of systems as above remained reviewed negative. Physical exam vital signs are stable. ENT is unremarkable. Heart regular rhythm and rate. Lungs clear. Abdomen diffusely tender without guarding rigidity. Patient has had a cholecystectomy, there is minimal tenderness in the right upper quadrant. Extremities are unremarkable. Neurologically intact. Skin no rashes. Psych flat affect. ED course we will do basic labs, and acute abdominal series, and treat her nausea with fluids and IV medication. Laboratory data revealed DKA. Patient's nausea really was not significantly improved with medications. She is given IV hydration. She was given IV insulin. Hospitalist service was notified as to the need for admission. Patient was also informed of this knee. Hemodynamically she remained stable. Critical care time was 35 minutes. Agree with the resident physician assessment and plan.
[2018-06-05 07:39] LABS: Basophils # 0.1 K/mcL (0.0-0.2); Basophils % 0.8 %; Hematocrit 40.2 % (35.3-44.9); Hemoglobin 13.2 g/dL (11.5-15.4); Immature Granulocytes % 0.9 % (0-4); Lymphocytes # 2.2 K/mcL (0.6-4.6); Mean Corpuscular HGB Conc 32.8 g/dL (31.6-35.5); Mean Corpuscular Hemoglobin 32.4 pg (28.0-33.3); Mean Corpuscular Volume 98.5 fL (83.0-100.0); Mean Platelet Volume 9.3 fL (9.4-12.4); Monocytes # 0.6 K/mcL (0.0-1.3); Monocytes % 5.8 %; Neutrophils # 7.1 K/mcL (1.6-8.9); Platelet Count 400 K/mcL (140-400); Red Blood Count 4.08 M/mcL (3.82-4.97); Red Cell Distribution Width 13.2 % (11.5-14.5); Segmented Neutrophils % 70.5 %
[2018-06-05 08:13] LABS: BUN/Creatinine Ratio 18 (6-26); Blood Urea Nitrogen 17 mg/dL (6-20); Calcium 9.2 mg/dL (8.6-10.3); Carbon Dioxide 6 mEq/L (23-29); Chloride 101 mEq/L (98-107); Glucose 601 mg/dL (70-105); Osmolality,Calculated 309 (280-300); Potassium 4.9 mEq/L (3.5-5.1); Sodium 135 mEq/L (136-145); eGFR For Non-African Americans > 60 (> 60)
[2018-06-05] MEDS ORDERED: 0.9 % Sodium Chloride 1,000 ML IVC SCH (08:15)
[2018-06-05] MEDS ORDERED: *HR* Promethazine 25 MG/ML VIAL IVP ONE (08:37)
[2018-06-05] MEDS ORDERED: Insulin Regular, Human 100 UNIT/ML SQ ONE (08:44)
[2018-06-05 09:07] LABS: VBG HCO3 7 mEq/L (21-27); VBG PCO2 18 mmHg (41-51); VBG PH 7.17 pH Units (7.32-7.42); VBG PO2 124 mmHg (25-50)
[2018-06-05] MEDS ORDERED: *HR* Dextrose 50 % in Water (Syg) 50 ML SYRINGE IVP PRN ×2 (09:07→11:29)
[2018-06-05] MEDS ORDERED: Insulin Human Regular 100 UNIT in 0.9 % Sodium Chloride 100 ML IVC SCH (09:15)
[2018-06-05] MEDS ORDERED: 0.9 % Sodium Chloride 1,000 ML ONE (10:59)
[2018-06-05] MEDS ORDERED: Naloxone 0.4 MG/ML INJ IVP PRN (11:26)
[2018-06-05] MEDS ORDERED: D5% in 0.45% NACL 1,000 ML IVC PRN (11:53)
[2018-06-05] MEDS ORDERED: ALPRAZolam 0.5 MG TABLET PO PRN (12:15)
[2018-06-05] MEDS ORDERED: Ondansetron ODT 4 MG TAB.RAPDIS PO PRN (12:15)
[2018-06-05] MEDS ORDERED: 0.9 % Sodium Chloride w KCl 40 MEQ/1,000 ML MLS IVC SCH (12:30)
[2018-06-05 13:00] LABS: BUN/Creatinine Ratio 13 (6-26); Blood Urea Nitrogen 13 mg/dL (6-20); Calcium 8.4 mg/dL (8.6-10.3); Carbon Dioxide 7 mEq/L (23-29); Chloride 112 mEq/L (98-107); Glucose 223 mg/dL (70-105); Osmolality,Calculated 301 (280-300); Potassium 3.9 mEq/L (3.5-5.1); Sodium 142 mEq/L (136-145); eGFR For Non-African Americans > 60 (> 60)
[2018-06-05] MEDS: D5% in 0.45% NACL w KCl 20 MEQ/1,000 ML MLS IVC PRN ×3 (13:15→22:45)
--- NOTE | 2018-06-05 14:57 | Internal Med History&Physical ---
Date of Encounter: 06/05/18 Time of Encounter: 11:30 Internal Medicine - H&P: HPI Admitted From: Home History of present illness: Ms. Kemp is a 32 year old female past medical history of diabetes since childhood approximately 27 years on insulin came in with complaint of nausea vomiting abdominal pain. Patient had history of significant gastroparesis from diabetes and had J-tube placed which had to be removed recently as she was not able to tolerate feeding through it. She has been having nausea vomiting and diarrhea for past 2-3 days. She denies missing any dose of her long-acting insulin however has been adjusting it as she is not eating well. Denies any cough, shortness of breath or urinary complaints. She does have associated abdominal pain diffusely for past 2-3 days as well. Denies any recent travel. She is only able to tolerate liquid diet and her intake has been minimal. She had about 10-12 episodes of vomiting every day for the past 2 days. Denies any fevers or chills. Denies any sick contact. She usually eats homemade food. Denies any blood in stool. Patient's diarrhea has been ongoing for almost a year. Does not recall being told the reason why she has diarrhea. Has been evaluated by multiple gastroenterologists. Patient was found to have DKA in ER with metabolic acidosis. She was started on insulin drip and received 3 L of normal saline. Initial anion gap was 28. She was admitted for the management of DKA. On interview she continued to have complaint of abdominal pain. Nausea and pain slightly improved. Has been having good urine output now. Past Med Surg Social Fam HX - Past Medical History Medical history: arthritis, atrial fibrillation, diabetes, fibromyalgia, GERD, hyperlipidemia, kidney stones, migraine, RA, seizures, valvular heart disease Additional medical history: gastroporesis. Type I DM Psychiatric history: anxiety, depression, panic disorder - Past Surgical History Surgical History: , cholecystectomy Additional surgical history: JT. insulin pump - Social History Smoking Status: Never smoker Smokeless Tobacco Status: No Alcohol use: none Drug use: none - Family History Mother Living Status: Still Living Father Living Status: Internal Medicine - H&P: Meds ALPRAZolam [Xanax 0.5 MG Tablet] 0.5 mg PO BID PRN 10/06/17 [History] HYDROcodone/Acet 7.5/325 mg [[place] 7.5-325 mg] 1 tab PO TID PRN 10/06/17 [ History] Insulin ASPART [NovoLOG] 10 unit SQ TID 10/06/17 [History] Ondansetron [Zofran] 1 tab PO Q8H PRN 10/06/17 [History] Promethazine [Phenergan] 25 mg PO Q6HR PRN #20 tablet 10/08/17 [Rx] Dicyclomine [Bentyl] 10 mg PO QID 10/30/17 [History] Insulin Glargine [Lantus] 25 unit SQ HS 10/30/17 [History] 3 Allergy/AdvReac Type Severity Reaction Status Date / Time Iodinated Contrast- Oral and Allergy Severe Anaphylaxis Verified 06/05/18 07:49 IV Dye nitroglycerin Allergy Severe Anaphylaxis Verified 06/05/18 07:49 adhesive tape Allergy Intermediate Rash Verified 06/05/18 07:49 Cefaclor [From Ceclor] Allergy Intermediate Hives Verified 06/05/18 07:49 cephalexin [From Keflex] Allergy Intermediate Hives Verified 06/05/18 07:49 clarithromycin [From Biaxin] Allergy Intermediate Hives Verified 06/05/18 07:49 codeine Allergy Intermediate Rash Verified 06/05/18 07:49 [From Tylenol-Codeine #3] latex Allergy Intermediate Blister Verified 06/05/18 07:49 levofloxacin [From Levaquin] Allergy Intermediate Hives Verified 06/05/18 07:49 metoclopramide [From Reglan] AdvReac Severe Depression Verified 06/05/18 07:49 morphine AdvReac Severe Hallucinati Verified 06/05/18 07:49 ng naproxen AdvReac Severe Chest Pain Verified 06/05/18 07:49 acetaminophen AdvReac Intermediate Vomiting Verified 06/05/18 07:49 [From Darvocet-N 100] meloxicam [From Mobic] AdvReac Intermediate Chest Pain Verified 06/05/18 07:49 Oxaprozin [From Daypro] AdvReac Intermediate Chest Pain Verified 06/05/18 07:49 propoxyphene AdvReac Intermediate Vomiting Verified 06/05/18 07:49 [From Darvocet-N 100] spironolactone AdvReac Intermediate Chest Pain Verified 06/05/18 07:49 [From Aldactone] promethazine AdvReac Mild Muscle Pain Verified 06/05/18 07:49 ciprofloxacin [From Cipro] AdvReac Unknown Diarrhea Verified 06/05/18 07:49 ketorolac [From Toradol] AdvReac See Verified 06/05/18 07:49 Comments All Systems PM: A 10-system review of systems was performed and is negative for pertinent findings except as documented above in the HPI. - Constitutional Vitals: Temp Pulse Resp BP Pulse Ox 99.0 F 125 22 122/72 100 06/05/18 10:45 06/05/18 14:00 06/05/18 14:00 06/05/18 14:00 06/05/18 14:00 General appearance: Present: mild distress, A&O X 3 Exam: Constitutional: Vitals as noted. Conversant. Mild distress due to abdominal pain. No obvious deformities. Eyes exam: Sclera white, conjunctiva clear, no lid lag, PEARLA. ENT exam: Grossly normal hearing. Nasophargeal and Oropharyngeal exam unremarkable. Dry mucus membranes. No JVD, carotid bruit, no cervical lymphadenopathy. no thyromegaly or mass. Respiratory exam: Clear to auscultation bilaterally. No accessory muscle use, rales, rhonchi or wheezes Cardiovascular exam: RRR, +S1, +S2. no murmur, gallop, rubs. No chest wall tenderness GI/Abdominal exam: Soft, Diffuse abdominal tenderness, Non-distended, normal bowel sounds, no peritoneal signs. no orgenomegaly or mass appreciated. no hernia. Musculoskeletal exam: full ROM, no atrophy or deformity noted. no edema or cynosis, warm, pulses palpable and symmetrical in UE/LE. no calf tenderness. Neurological exam: AO X3, CN II-XII grossly intact, grossly normal motor and sensory exam. Normal muscle tone and reflexes. Skin exam: No skin rash, lesions or ulcers noted. no purpura or ecchymosis. Pych: Good insight and judgment. Intact memory. AOx3. anxious affect . Internal Med - H&P Results - Labs CBC & Chem 7: 06/05/18 07:28 06/05/18 15:05 - Assessment and plan (1) DKA (diabetic ketoacidoses) Current Visit: Yes Status: Acute Assessment and plan: - Patient on insulin drip. Continue per DKA protocol. We will switch to subcutaneous once anion gap closes - Currently running normal saline with potassium. We will switch to D5 half potassium when sugar is 250. - BMP every 2 hours for anion gap measurement. - We will obtain urinalysis and stool studies to value possible source of infection. Patient mentioned she has been compliant with her insulin regimen. Possible increased need of insulin. Qualifiers: Diabetes mellitus type: type 1 Diabetes mellitus complication detail: without coma Qualified Code(s): E10.10 - Type 1 diabetes mellitus with ketoacidosis without coma (2) Nausea & vomiting Current Visit: Yes Status: Acute Assessment and plan: - likely from DKA - prn promethazine and Zofran for symptomatic control Qualifiers: Vomiting type: unspecified Vomiting Intractability: non-intractable Qualified Code(s): R11.2 - Nausea with vomiting, unspecified (3) DVT prophylaxis Current Visit: No Status: Acute Assessment and plan: lovenox (4) Gastroparesis due to DM Current Visit: No Status: Acute Assessment and plan: - Will consult GI on thursday for further recommendation for gastroparesis as well as chronic diarrhea. (5) Insulin dependent diabetes mellitus Current Visit: No Status: Chronic Assessment and plan: As above (6) Chronic diarrhea Current Visit: Yes Status: Acute Assessment and plan: - We will get the stool studies and culture - Time Spent With Patient Total time spent is greater than 50% in coordination of care (as documented) at patient's floor/unit and/or counseling patient:
[2018-06-05 15:43] LABS: BUN/Creatinine Ratio 13 (6-26); Blood Urea Nitrogen 11 mg/dL (6-20); Calcium 8.4 mg/dL (8.6-10.3); Carbon Dioxide 13 mEq/L (23-29); Chloride 112 mEq/L (98-107); Glucose 220 mg/dL (70-105); Osmolality,Calculated 296 (280-300); Potassium 4.4 mEq/L (3.5-5.1); Sodium 140 mEq/L (136-145); eGFR For Non-African Americans > 60 (> 60)
[2018-06-05] MEDS: *HR* Promethazine 25 MG/ML VIAL IVP PRN (17:11)
[2018-06-05 17:16] LABS: Bilirubin,Urine Moderate (Negative); Blood,Urine Negative (Negative); Clarity,Urine Clear (Clear); Color,Urine Yellow (Yellow); Glucose,Urine (UA) >=1000 mg/dL (Normal); Ketones,Urine >=160 mg/dL (Negative); Leukocyte Esterase,Urine Negative (Negative); Nitrite,Urine Negative (Negative); PH,Urine 5.5 pH Units (5.0-8.0); Protein,Urine 30 mg/dL (Neg-Trace); Specific Gravity,Urine 1.019 (1.010-1.025); Urobilinogen,Urine Normal (Normal)
[2018-06-05 17:18] LABS: Bacteria,Urine Few per hpf (None-Few); Hyaline Casts,Urine None Seen per lpf (None-Few); Squamous Epithelial Cell,Urine Many per lpf (None-Few); WBC,Urine 0-3 per hpf (0-3)
[2018-06-05 18:58] LABS: BUN/Creatinine Ratio 12 (6-26); Blood Urea Nitrogen 10 mg/dL (6-20); Calcium 8.6 mg/dL (8.6-10.3); Carbon Dioxide 7 mEq/L (23-29); Chloride 110 mEq/L (98-107); Glucose 315 mg/dL (70-105); Osmolality,Calculated 291 (280-300); Potassium 4.7 mEq/L (3.5-5.1); Sodium 135 mEq/L (136-145); eGFR For Non-African Americans > 60 (> 60)
[2018-06-05] MEDS: Famotidine 20 MG/2 ML VIAL IVP SCH (19:06)
[2018-06-05 21:26] LABS: BUN/Creatinine Ratio 13 (6-26); Blood Urea Nitrogen 10 mg/dL (6-20); Carbon Dioxide 14 mEq/L (23-29); Chloride 113 mEq/L (98-107); Glucose 166 mg/dL (70-105); Potassium 3.8 mEq/L (3.5-5.1); Sodium 140 mEq/L (136-145); eGFR For Non-African Americans > 60 (> 60)
[2018-06-05 21:27] LABS: Calcium 8.4 mg/dL (8.6-10.3); Osmolality,Calculated 293 (280-300)
[2018-06-06 01:17] LABS: BUN/Creatinine Ratio 11 (6-26); Blood Urea Nitrogen 8 mg/dL (6-20); Calcium 8.3 mg/dL (8.6-10.3); Carbon Dioxide 15 mEq/L (23-29); Chloride 113 mEq/L (98-107); Glucose 179 mg/dL (70-105); Osmolality,Calculated 289 (280-300); Potassium 3.7 mEq/L (3.5-5.1); Sodium 138 mEq/L (136-145); eGFR For Non-African Americans > 60 (> 60)
[2018-06-06] MEDS: D5% in 0.45% NACL w KCl 20 MEQ/1,000 ML MLS IVC PRN (02:24)
[2018-06-06 03:50] LABS: Basophils % 0.4 %; Eosinophils % 0.4 %; Immature Granulocytes % 0.3 % (0-4); Lymphocytes # 3.8 K/mcL (0.6-4.6); Lymphocytes % 37.2 %; Mean Corpuscular HGB Conc 32.3 g/dL (31.6-35.5); Mean Corpuscular Hemoglobin 31.6 pg (28.0-33.3); Mean Corpuscular Volume 97.8 fL (83.0-100.0); Mean Platelet Volume 8.8 fL (9.4-12.4); Monocytes # 0.8 K/mcL (0.0-1.3); Monocytes % 7.6 %; Neutrophils # 5.5 K/mcL (1.6-8.9); Platelet Count 294 K/mcL (140-400); Red Blood Count 3.58 M/mcL (3.82-4.97); Red Cell Distribution Width 13.4 % (11.5-14.5); Segmented Neutrophils % 54.1 %
[2018-06-06 03:59] LABS: Hemoglobin 11.3 g/dL (11.5-15.4)
[2018-06-06] MEDS: Ondansetron 4 MG/2 ML VIAL IVP PRN ×4 (04:07→22:30)
[2018-06-06 04:18] LABS: Alanine Aminotransferase 25 Units/L (7-52); Albumin 2.8 g/dL (3.5-5.7); Albumin/Globulin Ratio 0.9 (1.1-2.2); Alkaline Phosphatase 156 Units/L (34-104); Aspartate Amino Transferase 24 Units/L (13-39); BUN/Creatinine Ratio 11 (6-26); Bilirubin,Total 0.2 mg/dL (0.3-1.0); Blood Urea Nitrogen 7 mg/dL (6-20); Calcium 8.1 mg/dL (8.6-10.3); Carbon Dioxide 17 mEq/L (23-29); Chloride 114 mEq/L (98-107); Globulin 3.1 g/dL (2.4-3.5); Glucose 145 mg/dL (70-105); Osmolality,Calculated 289 (280-300); Potassium 3.4 mEq/L (3.5-5.1); Sodium 139 mEq/L (136-145); Total Protein 5.9 g/dL (6.4-8.9); eGFR For Non-African Americans > 60 (> 60)
[2018-06-06] MEDS: *HR* Enoxaparin 40 MG/0.4 ML SYRINGE SQ SCH (06:05)
[2018-06-06] MEDS ORDERED: *HR* Dextrose 50 % in Water (Syg) 50 ML SYRINGE IVP PRN (06:18)
[2018-06-06] MEDS ORDERED: D5% in Water 1,000 ML IVC PRN (06:18)
[2018-06-06] MEDS ORDERED: Dextrose Gel 15 GM/37.5 ML TUBE PO PRN ×2 (06:18)
[2018-06-06] MEDS: Famotidine 20 MG/2 ML VIAL IVP SCH ×2 (06:23→17:40)
[2018-06-06] MEDS: Insulin LISPRO 300 UNITS/3 ML VIAL SQ SCH ×4 (07:26→20:34)
[2018-06-06] MEDS ORDERED: Insulin DETEMIR 100 UNIT/ML X5UNITS SQ ONE (07:30)
--- NOTE | 2018-06-06 09:38 | Internal Med Progress Note ---
Hospitalist Progress Note - Encounter Date of Encounter: 06/06/18 Time of Encounter: 09:38 - Subjective Interval History: 32 F Seen and evaluated in the ICU She was admitted for DKA, initial AG of 28 At time of review, she has begun tolerating po and is now on SQ insulin She still complains of abdominal pain, her DM is complicated by gastroparesis She had one episode of fever, 100.9, no cough, no SOB, no diarrhea, no flu-like symptoms and no urinary symptoms - Exam Vitals: Temp Pulse Resp BP Pulse Ox 97.8 F 111 14 121/74 100 06/06/18 07:00 06/06/18 09:00 06/06/18 09:00 06/06/18 09:00 06/06/18 09:00 Exam: Constitutional: Vitals as noted. Conversant. Eyes exam: Sclera white, conjunctiva clear, no lid lag, PEARLA. ENT exam: Grossly normal hearing. Nasophargeal and Oropharyngeal exam unremarkable. Respiratory exam: Clear to auscultation bilaterally. No accessory muscle use, rales, rhonchi or wheezes Cardiovascular exam: RRR, +S1, +S2. no murmur, gallop, rubs. No chest wall tenderness GI/Abdominal exam: Soft, non-tender, Non-distended, normal bowel sounds, no peritoneal signs. no orgenomegaly or mass appreciated. no hernia. Dressing intact on prior J-tube site Musculoskeletal exam: full ROM, no atrophy or deformity noted. no edema or cynosis, warm, pulses palpable and symmetrical in UE/LE. no calf tenderness. Neurological exam: AO X3, CN II-XII grossly intact, grossly normal motor and sensory exam. Normal muscle tone and reflexes. Skin exam: No skin rash, lesions or ulcers noted. no purpura or ecchymosis. Pych: Good insight and judgment. Intact memory. AOx3. anxious affect . - Assessment and Plan (1) Insulin dependent diabetes mellitus Current Visit: Yes Status: Chronic Assessment and Plan: See DKA (2) DVT prophylaxis Current Visit: Yes Status: Acute Assessment and Plan: lovenox (3) Nausea & vomiting Current Visit: Yes Status: Resolved Assessment and Plan: Resolved Continue supportive care (4) Gastroparesis due to DM Current Visit: Yes Status: Chronic Assessment and Plan: Chronic Abd imaging shows constipation, however hs of chronic diarrhea, previously worked up Continue supportive care, small frequent meals May consult GI if no improvement (5) DKA (diabetic ketoacidoses) Current Visit: Yes Status: Resolved Assessment and Plan: Improved Continue levemir SQ HS Encourage feeds Lispro as sliding scale FS ACHS AG close, Serum bicarb improved to 19 from 7 on admission, continue to monitor Chem (6) Chronic diarrhea Current Visit: Yes Status: Chronic Assessment and Plan: As above (7) SIRS (systemic inflammatory response syndrome) Current Visit: Yes Status: Acute Assessment and Plan: Patient with on episode of fever and persistent tachycardia Likely due to volume loss No obvious source of infection Continue to monitor No indication for antibiotics at this time - Time Spent with Patient Total time spent is greater than 50% in coordination of care (as documented) at patient's floor/unit and/or counseling patient: Plan of Care Discussed with: patient Internal Medicine: Result - Labs CBC & Chem 7: 06/06/18 03:39 06/06/18 03:39 Labs: Short CBC 06/06/18 Range/Units 03:39 WBC 10.1 (4.3-11.1) K/mcL Hgb 11.3 L D (11.5-15.4) g/dL Hct 35.0 L (35.3-44.9) % Plt Count 294 (140-400) K/mcL Neutrophils # 5.5 (1.6-8.9) K/mcL BMP 06/05/18 06/05/18 06/05/18 15:05 17:40 20:56 Sodium 140 135 L 140 Potassium 4.4 4.7 3.8 Chloride 112 H 110 H 113 H Carbon Dioxide 13 L 7 L* 14 L BUN 11 10 10 Creatinine 0.84 0.82 0.77 Glucose 220 H 315 H 166 H Calcium 8.4 L 8.6 8.4 L 06/06/18 06/06/18 00:40 03:39 Sodium 138 139 Potassium 3.7 3.4 L Chloride 113 H 114 H Carbon Dioxide 15 L 17 L BUN 8 7 Creatinine 0.72 0.65 Glucose 179 H 145 H Calcium 8.3 L 8.1 L Liver Function 06/06/18 Range/Units 03:39 Total Bilirubin 0.2 L (0.3-1.0) mg/dL AST 24 (13-39) Units/L ALT 25 (7-52) Units/L Alkaline Phosphatase 156 H (34-104) Units/L Albumin 2.8 L (3.5-5.7) g/dL Urine 06/05/18 Range/Units 17:05 Urine Color Yellow (Yellow) Urine Clarity Clear (Clear) Urine pH 5.5 (5.0-8.0) pH Units Ur Specific [place] 1.019 (1.010-1.025) Urine Protein 30 H (Neg-Trace) mg/dL Urine Glucose (UA) >=1000 H (Normal) mg/dL Consult Discharge Plan - Plan Referrals: Mily Hightower [Primary Care Provider] - Haleigh Diana MD [Family Provider] - (3) Nausea & vomiting Qualifiers: Vomiting type: unspecified Vomiting Intractability: non-intractable Qualified Code(s): R11.2 - Nausea with vomiting, unspecified (5) DKA (diabetic ketoacidoses) Qualifiers: Diabetes mellitus type: type 1 Diabetes mellitus complication detail: without coma Qualified Code(s): E10.10 - Type 1 diabetes mellitus with ketoacidosis without coma
[2018-06-06] MEDS ORDERED: Ringers Solution, Lactated 500 ML IVC ONE (12:35)
[2018-06-06] MEDS ORDERED: Ringers Solution, Lactated 1,000 ML ONE (13:26)
[2018-06-06] MEDS ORDERED: 0.9 % Sodium Chloride 250 ML ONE (20:20)
[2018-06-06] MEDS: Insulin DETEMIR 100 UNIT/ML X5UNITS SQ SCH (20:34)
[2018-06-06] MEDS ORDERED: *HR* HYDROcodone/Acet 5/325 mg TABLET PO ONE (20:44)
[2018-06-07 04:55] LABS: Basophils % 0.5 %; Eosinophils # 0.1 K/mcL (0.0-0.6); Eosinophils % 1.1 %; Hematocrit 35.2 % (35.3-44.9); Hemoglobin 11.4 g/dL (11.5-15.4); Immature Granulocytes % 0.2 % (0-4); Lymphocytes # 4.8 K/mcL (0.6-4.6); Lymphocytes % 54.4 %; Mean Corpuscular HGB Conc 32.4 g/dL (31.6-35.5); Mean Corpuscular Volume 98.9 fL (83.0-100.0); Mean Platelet Volume 9.1 fL (9.4-12.4); Monocytes # 0.6 K/mcL (0.0-1.3); Monocytes % 6.5 %; Neutrophils # 3.3 K/mcL (1.6-8.9); Platelet Count 247 K/mcL (140-400); Red Blood Count 3.56 M/mcL (3.82-4.97); Red Cell Distribution Width 13.7 % (11.5-14.5); Segmented Neutrophils % 37.3 %
[2018-06-07] MEDS: *HR* HYDROcodone/Acet 5/325 mg TABLET PO PRN ×3 (05:02→17:41)
[2018-06-07] MEDS: *HR* Enoxaparin 40 MG/0.4 ML SYRINGE SQ SCH (05:02)
[2018-06-07] MEDS: Ondansetron 4 MG/2 ML VIAL IVP PRN (05:03)
[2018-06-07] MEDS: Famotidine 20 MG/2 ML VIAL IVP SCH (05:03)
[2018-06-07 05:20] LABS: BUN/Creatinine Ratio 10 (6-26); Blood Urea Nitrogen 6 mg/dL (6-20); Calcium 8.2 mg/dL (8.6-10.3); Carbon Dioxide 20 mEq/L (23-29); Chloride 112 mEq/L (98-107); Glucose 112 mg/dL (70-105); Osmolality,Calculated 284 (280-300); Potassium 3.5 mEq/L (3.5-5.1); Sodium 138 mEq/L (136-145); eGFR For Non-African Americans > 60 (> 60)
[2018-06-07] MEDS: Insulin LISPRO 300 UNITS/3 ML VIAL SQ SCH ×4 (09:39→20:40)
[2018-06-07] MEDS: *HR* Promethazine 25 MG/ML VIAL IVP PRN (09:42)
--- NOTE | 2018-06-07 10:24 | Internal Med Progress Note ---
Hospitalist Progress Note - Encounter Date of Encounter: 06/07/18 Time of Encounter: 10:24 - Subjective Interval History: 32 F Seen and evaluated in the ICU She was admitted for DKA, initial AG of 28 At time of review, she has begun tolerating po and is now on SQ insulin She still complains of abdominal pain, her DM is complicated by gastroparesis She had one episode of fever, 100.9, no cough, no SOB, no diarrhea, no flu-like symptoms and no urinary symptoms - Exam Vitals: Temp Pulse Resp BP Pulse Ox 97.8 F 95 18 125/87 100 06/07/18 07:34 06/07/18 07:34 06/07/18 07:34 06/07/18 07:34 06/07/18 07:34 Exam: Constitutional: Vitals as noted. Conversant. Eyes exam: Sclera white, conjunctiva clear, no lid lag, PEARLA. ENT exam: Nasophargeal and Oropharyngeal exam unremarkable. Respiratory exam: Clear to auscultation bilaterally. No accessory muscle use, rales, rhonchi or wheezes Cardiovascular exam: RRR, +S1, +S2. no murmur, gallop, rubs. No chest wall tenderness GI/Abdominal exam: Soft, non-tender, Non-distended, normal bowel sounds, no peritoneal signs. no orgenomegaly or mass appreciated. no hernia. Dressing intact on prior J-tube site Musculoskeletal exam: full ROM, no atrophy or deformity noted. no edema or cynosis, warm, pulses palpable and symmetrical in UE/LE. no calf tenderness. Neurological exam: AO X3, CN II-XII grossly intact, grossly normal motor and sensory exam. Normal muscle tone and reflexes. Skin exam: No skin rash, lesions or ulcers noted. no purpura or ecchymosis. Pych: Good insight and judgment. Intact memory. AOx3. anxious affect . - Assessment and Plan (1) Insulin dependent diabetes mellitus Current Visit: Yes Status: Chronic Assessment and Plan: See DKA (2) DVT prophylaxis Current Visit: Yes Status: Acute Assessment and Plan: lovenox (3) Nausea & vomiting Current Visit: Yes Status: Resolved Assessment and Plan: Resolved Continue supportive care (4) Gastroparesis due to DM Current Visit: Yes Status: Chronic Assessment and Plan: Chronic Abd imaging shows constipation, however hs of chronic diarrhea, previously worked up Continue supportive care, small frequent meals May consult GI if no improvement, however, if FS remain stable, patient may follow up with GI as out-patient (5) DKA (diabetic ketoacidoses) Current Visit: Yes Status: Resolved Assessment and Plan: Improved Continue levemir SQ HS Encourage feeds Lispro as sliding scale FS ACHS AG closed, Serum bicarb improved to 20 from 7 on admission, continue to monitor Chem (6) Chronic diarrhea Current Visit: Yes Status: Chronic Assessment and Plan: As above (7) SIRS (systemic inflammatory response syndrome) Current Visit: Yes Status: Acute Assessment and Plan: Improving Patient with one episode of fever 06/05 100.9 She also had tachycardia Likely due to volume loss No obvious source of infection Continue to monitor No indication for antibiotics at this time - Time Spent with Patient Total time spent is greater than 50% in coordination of care (as documented) at patient's floor/unit and/or counseling patient: Plan of Care Discussed with: patient Internal Medicine: Result - Labs CBC & Chem 7: 06/07/18 04:33 06/07/18 04:33 Labs: Short CBC 06/07/18 Range/Units 04:33 WBC 8.9 (4.3-11.1) K/mcL Hgb 11.4 L (11.5-15.4) g/dL Hct 35.2 L (35.3-44.9) % Plt Count 247 (140-400) K/mcL Neutrophils # 3.3 (1.6-8.9) K/mcL BMP 06/07/18 04:33 Sodium 138 Potassium 3.5 Chloride 112 H Carbon Dioxide 20 L BUN 6 Creatinine 0.60 Glucose 112 H Calcium 8.2 L Consult Discharge Plan - Plan Referrals: Mily Hightower [Primary Care Provider] - Haleigh Diana MD [Family Provider] - (3) Nausea & vomiting Qualifiers: Vomiting type: unspecified Vomiting Intractability: non-intractable Qualified Code(s): R11.2 - Nausea with vomiting, unspecified (5) DKA (diabetic ketoacidoses) Qualifiers: Diabetes mellitus type: type 1 Diabetes mellitus complication detail: without coma Qualified Code(s): E10.10 - Type 1 diabetes mellitus with ketoacidosis without coma
[2018-06-07] MEDS: Famotidine 20 MG TABLET PO SCH (17:41)
[2018-06-07] MEDS: Insulin DETEMIR 100 UNIT/ML X5UNITS SQ SCH (20:45)
[2018-06-08] MEDS: *HR* HYDROcodone/Acet 5/325 mg TABLET PO PRN ×2 (00:11→08:54)
[2018-06-08] MEDS: Ondansetron 4 MG/2 ML VIAL IVP PRN (00:13)
[2018-06-08] MEDS: *HR* Enoxaparin 40 MG/0.4 ML SYRINGE SQ SCH (04:58)
[2018-06-08] MEDS: Famotidine 20 MG TABLET PO SCH (08:54)
[2018-06-08] MEDS: Insulin LISPRO 300 UNITS/3 ML VIAL SQ SCH ×2 (09:09→13:04)
--- NOTE | 2018-06-08 11:03 | Discharge Summary ---
- NOTES TO OUTPATIENT PROVIDER Notes to Outpatient Provider: Patient with history of gastroparesis and DM was admitted for DKA and intractable nausea/vomiting. Improved with IVF and IV insulin -> transitioned to her home dose of SQ insulin. Management of her gastroparesis was extensively discussed with the patient (for which she had already seen multiple gastroenterologists) and was advised to follow up with [facility] where she was referred to most recently. Orders not resulted at time of discharge: Pending orders 06/05/18 15:11 Culture,Stool [RM] Routine Date of Encounter: 06/08/18 Time of Encounter: 09:00 - Discharge Diagnosis (1) Insulin dependent diabetes mellitus Priority: Secondary Status: Chronic (2) DVT prophylaxis Priority: Secondary Status: Acute (3) Nausea & vomiting Priority: Secondary Status: Resolved Qualifiers: Vomiting type: unspecified Vomiting Intractability: non-intractable Qualified Code(s): R11.2 - Nausea with vomiting, unspecified (4) Gastroparesis due to DM Priority: Secondary Status: Chronic (5) DKA (diabetic ketoacidoses) Priority: Primary Status: Resolved Qualifiers: Diabetes mellitus type: type 1 Diabetes mellitus complication detail: without coma Qualified Code(s): E10.10 - Type 1 diabetes mellitus with ketoacidosis without coma (6) Chronic diarrhea Priority: Secondary Status: Chronic (7) SIRS (systemic inflammatory response syndrome) Priority: Secondary Status: Acute Hospital course: Ms. Kemp is a 32 year old female with history of gastroparesis and DM was admitted for DKA and intractable nausea/vomiting. Improved with IVF and IV insulin -> transitioned to her home dose of SQ insulin. Management of her gastroparesis was extensively discussed with the patient (for which she had already seen multiple gastroenterologists) and was advised to follow up with [facility] where she was referred to most recently. She was also given a 5 day course of Reglan to see if if offers any symptomatic relief. Possibility of transferring patient directly to [facility] was considered per patient' request but she did not have any acute need for specialized inpatient treatment that she can benefit from. Discharge discussed with: patient - Time Spent with Patient Total time spent providing and/or coordinating discharge services: Greater than 30 minutes - Discharge Medications Prescriptions: Metoclopramide [Reglan] 5 mg PO Q6HR PRN 5 Days #100 mls PRN Reason: Vomiting Home Medications: ALPRAZolam [Xanax 0.5 MG Tablet] 0.5 mg PO BID PRN 10/06/17 [History] HYDROcodone/Acet 7.5/325 mg [[place] 7.5-325 mg] 1 tab PO TID PRN 10/06/17 [ History] Insulin ASPART [NovoLOG] 10 unit SQ TID 10/06/17 [History] Ondansetron [Zofran] 1 tab PO Q8H PRN 10/06/17 [History] Promethazine [Phenergan] 25 mg PO Q6HR PRN #20 tablet 10/08/17 [Rx] Dicyclomine [Bentyl] 10 mg PO QID 10/30/17 [History] Insulin Glargine [Lantus] 25 unit SQ HS 10/30/17 [History] Metoclopramide [Reglan] 5 mg PO Q6HR PRN 5 Days #100 mls 06/08/18 [Rx] Allergies/Adverse Reactions: 3 Allergy/AdvReac Type Severity Reaction Status Date / Time Iodinated Contrast- Oral and Allergy Severe Anaphylaxis Verified 06/05/18 07:49 IV Dye nitroglycerin Allergy Severe Anaphylaxis Verified 06/05/18 07:49 adhesive tape Allergy Intermediate Rash Verified 06/05/18 07:49 Cefaclor [From Ceclor] Allergy Intermediate Hives Verified 06/05/18 07:49 cephalexin [From Keflex] Allergy Intermediate Hives Verified 06/05/18 07:49 clarithromycin [From Biaxin] Allergy Intermediate Hives Verified 06/05/18 07:49 codeine Allergy Intermediate Rash Verified 06/05/18 07:49 [From Tylenol-Codeine #3] latex Allergy Intermediate Blister Verified 06/05/18 07:49 levofloxacin [From Levaquin] Allergy Intermediate Hives Verified 06/05/18 07:49 metoclopramide [From Reglan] AdvReac Severe Depression Verified 06/05/18 07:49 morphine AdvReac Severe Hallucinati Verified 06/05/18 07:49 ng naproxen AdvReac Severe Chest Pain Verified 06/05/18 07:49 acetaminophen AdvReac Intermediate Vomiting Verified 06/05/18 07:49 [From Darvocet-N 100] meloxicam [From Mobic] AdvReac Intermediate Chest Pain Verified 06/05/18 07:49 Oxaprozin [From Daypro] AdvReac Intermediate Chest Pain Verified 06/05/18 07:49 propoxyphene AdvReac Intermediate Vomiting Verified 06/05/18 07:49 [From Darvocet-N 100] spironolactone AdvReac Intermediate Chest Pain Verified 06/05/18 07:49 [From Aldactone] promethazine AdvReac Mild Muscle Pain Verified 06/05/18 07:49 ciprofloxacin [From Cipro] AdvReac Unknown Diarrhea Verified 06/05/18 07:49 ketorolac [From Toradol] AdvReac See Verified 06/05/18 07:49 Comments Date of admission: 06/05/18 12:54 Primary care physician: Mily Hightower - Constitutional Vitals: Temp Pulse Resp BP Pulse Ox 97.9 F 97 16 108/75 99 06/08/18 07:06 06/08/18 07:06 06/08/18 07:06 06/08/18 07:06 06/08/18 07:06 General appearance: Present: mild distress, A&O X 3 Exam: Constitutional: Vitals as noted. Conversant. Eyes exam: Sclera white, conjunctiva clear Respiratory exam: Clear to auscultation bilaterally Cardiovascular exam: RRR, +S1, +S2. no murmur GI/Abdominal exam: Soft, non-tender, Non-distended Psych: Good insight and judgment. AOx3. anxious affect - Patient Status Disposition: Home, Self-Care Condition: Fair - Discharge Instructions Instructions: Diabetes Mellitus Type 2 in Adults (DC) Follow Up With: Mily Hightower [Primary Care Provider] - Haleigh Diana MD [Family Provider] - Additional Instructions: Patient will need to follow up with GI for poorly controlled gastroparesis - Diet and Activity Activity: resume usual activities as tolerated Diet: advance to your usual diet
[2018-06-08 11:30] VITALS: BP 120/81
== END 2018-06-08 15:44 | disposition home or self-care (01) | DRG 638 ==
LOC: ICNU 07:01 → EMEROOARM 07:01 → ICNU 09:56 → SUATTDRO 12:54 → 2ANU 06-06 16:10
PROVIDERS: ADMIT Internal Medicine; ATTEND Internal Medicine